=== PATIENT | male | born 1970 | race Two or more races ===

== ENCOUNTER 2018-03-15 08:33 | Observation (INO) | payer SELFPAY ==
[~2018-03-15] VITALS: Ht 180.3 cm; Wt 78.2 kg
[2018-03-15] MEDS ORDERED: LIDOCAINE-MPF 1%, 5ML ONE (08:48)
[2018-03-15] MEDS ORDERED: DIPH,PERTUSS(ACELL),TET VAC/PF 0.5 ML IM-VACC ONE ×2 (09:00→09:44)
[2018-03-15] MEDS ORDERED: LIDOCAINE-MPF 1%, 5ML INFIL ONE (09:00)
[2018-03-15] MEDS ORDERED: SODIUM CHLORIDE FLUSH 10ML SYR IVF ONE (09:30)
[2018-03-15] MEDS ORDERED: CEFAZOLIN PMX 1GM/50ML 50 ML IV ONE (09:30)
[2018-03-15] MEDS ORDERED: CEFAZOLIN PMX 1GM/50ML 50 ML ONE (09:44)
[2018-03-15 10:44] VITALS: BP 112/69
[2018-03-15] MEDS ORDERED: BUPIVACAINE/PF 0.5% ONE (12:03)
[2018-03-15] MEDS ORDERED: FENTANYL PF 250 MCG/5ML ONE (12:39)
[2018-03-15] MEDS ORDERED: MIDAZOLAM 1 MG/ML, 2ML ONE (12:39)
[2018-03-15] MEDS ORDERED: CEFAZOLIN 1,000 MG ONE ×2 (12:40)
[2018-03-15] MEDS ORDERED: PROPOFOL 10 MG/ML, 20ML ONE (12:40)
[2018-03-15] MEDS ORDERED: WATER-INJECTION,STERILE 10 ML IV ONE (12:40)
[2018-03-15] MEDS ORDERED: HYDROmorphone 1 MG/ML, 1ML IV PRN (13:00)
[2018-03-15] MEDS ORDERED: hydrALAzine 20 MG/ML, 1ML IV PRN (13:00)
[2018-03-15] MEDS ORDERED: OXYcodone 5 MG/5 ML ORAL.SOL UDC PO PRN (13:00)
[2018-03-15] MEDS ORDERED: PROMETHAZINE 25 MG/ML, 1ML IV PRN (13:00)
[2018-03-15] MEDS ORDERED: MEPERIDINE/PF 25MG/0.5ML IVPush PRN (13:00)
[2018-03-15] MEDS ORDERED: ONDANSETRON ODT 8 MG PO PRN (13:00)
[2018-03-15] MEDS ORDERED: LABETALOL 5MG/ML, 20ML IV PRN (13:00)
[2018-03-15] MEDS ORDERED: FENTANYL PF 100 MCG/2ML IV PRN (13:00)
[2018-03-15] MEDS ORDERED: PROMETHAZINE 25 MG SUPP PR PRN (13:00)
[2018-03-15] MEDS ORDERED: MORPHINE SULFATE 4 MG/ML, 1ML IVPush PRN (13:00)
[2018-03-15] MEDS ORDERED: ONDANSETRON 2MG/ML, 2ML IV PRN (13:00)
[2018-03-15] MEDS ORDERED: PROMETHAZINE 12.5 MG SUPP PR PRN (13:00)
[2018-03-15] MEDS ORDERED: OXYcodone 5 MG/5 ML ORAL.SOL UDC ONE (13:49)
[2018-03-15] MEDS ORDERED: ACETAMINOPHEN 650 MG/20.3 ML UDC ONE (13:50)
[2018-03-15] MEDS ORDERED: AMOX1TAB64 PO (15:07)
[2018-03-15] MEDS ORDERED: HYDR-3240 PO (15:08)
[2018-03-15] MEDS ORDERED: DOCU-131 PO (15:08)
== END 2018-03-15 16:35 | disposition home or self-care (01) ==
LOC: ED 09:11 → EDIP 09:44 → 4NOR 14:24
PROVIDERS: ADMIT Orthopaedic Surgery; ATTEND Orthopaedic Surgery
DX: S68.127A Partial traumatic metacarpophalangeal amputation of left little finger, initial encounter (principal); X58.XXXA Exposure to other specified factors, initial encounter; Y93.89 Activity, other specified; Y92.89 Other specified places as the place of occurrence of the external cause; Y99.8 Other external cause status; Z87.442 Personal history of urinary calculi
CPT/HCPCS: 26236; 73140; 90471; 90715; 96365; 99285; G0378; J0690; J2250; J2704; J3010; J3490